=== PATIENT | male | born 1965 | race Caucasian/White ===

== ENCOUNTER 2023-10-23 08:11 | Emergency (ER) | payer MEDICAID, OTHER ==
[2023-10-22] MEDS: IV NS 0.9% 1,000 ML BAG IV ONE (08:30)
[~2023-10-23] VITALS: Ht 172.7 cm; Wt 90.7 kg
[2023-10-23 08:43] LABS: BASOPHILS % (AUTO) 0.4 % (0.0-2.0); EOSINOPHILS % (AUTO) 0.5 % (0.0-6.0); HEMATOCRIT 43 % (39-51); LYMPHOCYTES % (AUTO) 32.5 % (20.0-44.0); MEAN CORPUSCULAR HEMOGLOBIN 29 PG (26.0-33.0); MEAN CORPUSCULAR HGB CONC 33 g/dl (31.0-36.0); MEAN CORPUSCULAR VOLUME 89 fL (80-96); MONOCYTES # (AUTO) 0.4 K/uL (0.1-1.30); MONOCYTES % (AUTO) 5.6 % (2.0-12.0); NEUTROPHILS # (AUTO) 3.8 K/uL (1.8-8.9); PLATELET COUNT (AUTO) 219 K/uL (150-450); RED BLOOD CELL COUNT(AUTO) 4.84 MIL/uL (4.5-6.0); RED CELL DISTRIBUTION WIDTH 13.3 % (11.5-15.0); WHITE BLOOD COUNT (AUTO) 6.3 K/uL (4.3-11.0)
[2023-10-23 08:54] LABS: CREATININE 1.2 mg/dL (0.6-1.3); POTASSIUM 4.1 mmol/L (3.5-5.1)
[2023-10-23 09:00] LABS: ALBUMIN 3.8 g/dL (3.4-5.0); BILIRUBIN,DIRECT 0.1 mg/dL (0.0-0.2); BILIRUBIN,TOTAL 0.5 mg/dL (0.2-1.0); TOTAL PROTEIN, SERUM 7.8 g/dL (6.4-8.2)
[2023-10-23 09:08] LABS: APPEARANCE,URINE CLEAR (CLEAR); BILIRUBIN,URINE NEGATIVE (NEGATIVE); BLOOD, URINE NEGATIVE Ery/uL (NEGATIVE); COLOR,URINE YELLOW (YELLOW); KETONES,URINE NEGATIVE (NEGATIVE); LEUKOCYTE ESTERASE ,URINE NEGATIVE (NEGATIVE); NITRITE, URINE NEGATIVE (NEGATIVE); PH,URINE 5.5 (5.0-8.0); PROTEIN,URINE TRACE mg/dl (NEGATIVE); UGLUCOSE NEGATIVE (NEGATIVE); UROBILINOGEN,URINE 0.2 EU/dL (0.2)
[2023-10-23 09:09] LABS: ADD URINE CULTURE NO; BACTERIA,URINE None seen /HPF (None Seen); RBC,URINE 0-2 /HPF (0-2); SQUAMOUS EPITHELIAL CELL,UR Rare /HPF (None Seen); WBC,URINE 0-2 /HPF (0-3)
[2023-10-23] MEDS ORDERED: CYCL5TAB PO (10:18)
[2023-10-23] MEDS ORDERED: IBUP-1955 PO (10:18)
[2023-10-23] MEDS ORDERED: LIDO30AD10 TP (10:18)
[2023-10-23 10:28] VITALS: BP 178/97; TEMP 98.1; O2SAT 100
== END 2023-10-23 10:29 | disposition home or self-care (01) ==
LOC: ER 08:17
DX: N40.0 Benign prostatic hyperplasia without lower urinary tract symptoms (principal); K76.0 Fatty (change of) liver, not elsewhere classified; M62.58 Muscle wasting and atrophy, not elsewhere classified, other site
CPT/HCPCS: 99284; 74176; 96360; 85025; 80048; 83690; 80076; 81001; 36415; J7030 ×2

== ENCOUNTER 2024-04-08 10:29 | Emergency (ER) | payer MEDICAID, OTHER ==
[~2024-04-08] VITALS: Ht 170.2 cm; Wt 100.7 kg
[~2024-04-08 10:29] MED LIST: CYCL5TAB PO; IBUP-1955 PO; LIDO30AD10 TP
[2024-04-08 10:44] VITALS: BP 165/102; TEMP 98.2
[2024-04-08] MEDS ORDERED: CLINDAMYCIN HCL 150 MG CAPSULE ONE (11:18)
[2024-04-08] MEDS ORDERED: KETOROLAC TROMETHAMINE INJ 30 MG/ML VIAL ONE (11:18)
[2024-04-08] MEDS: CLINDAMYCIN HCL 150 MG CAPSULE PO ONE (11:21)
[2024-04-08] MEDS: KETOROLAC TROMETHAMINE INJ 30 MG/ML VIAL IM ONE (11:21)
[2024-04-08] MEDS ORDERED: CLIN300C12 PO (12:09)
[2024-04-08 12:29] VITALS: O2SAT 99
== END 2024-04-08 12:32 | disposition home or self-care (01) ==
LOC: ER 10:33
DX: M79.641 Pain in right hand (principal)
CPT/HCPCS: 99283; 96372; 73130; J1885